=== PATIENT | female | born 1995 | race Hispanic/Latino ===

== ENCOUNTER 2021-09-09 18:36 | Emergency (ER) | payer BC ==
[~2021-09-09] VITALS: Ht 154.9 cm; Wt 86.2 kg
[2021-09-09 19:13] LABS: APPEARANCE,URINE Clear (CLEAR); BILIRUBIN,URINE Negative (NEGATIVE); COLOR,URINE Yellow (YELLOW); GLUCOSE, URINE (UA) Negative (NEGATIVE); KETONES,URINE 15 mg/dL (NEGATIVE); LEUKOCYTE ESTERASE ,URINE Trace (NEGATIVE); NITRATE,URINE Negative (NEGATIVE); OCCULT BLOOD,URINE Trace (NEGATIVE); PH,URINE 6.5 (5.0-8.0); PROTEIN,URINE Negative (NEGATIVE); UROBILINOGEN,URINE 0.2 mg/dL (0.2-1.0)
[2021-09-09 19:14] LABS: HCG,QUAL RESULT POSITIVE (NEGATIVE)
[2021-09-09 19:18] LABS: BASOPHILS % (AUTO) 0.1 % (0.0-5.0); EOSINOPHILS % (AUTO) 0.4 % (0.0-8.0); HEMATOCRIT 45.2 % (36-48); LYMPHOCYTES % (AUTO) 12.9 % (21.0-51.0); MEAN CORPUSCULAR HGB CONC 32.7 g/dL (32.0-36.0); MEAN CORPUSCULAR VOLUME 88.6 fL (79-99); NEUTROPHILS % (AUTO) 80.3 % (40.0-77.0); PLATELET COUNT (AUTO) 397 K/uL (130-400); RED CELL DISTRIBUTION WIDTH 13.1 % (11.0-15.5); WHITE BLOOD COUNT (AUTO) 7.2 K/uL (4.8-10.8)
[2021-09-09 19:21] LABS: CREATININE 0.8 mg/dL (0.5-1.5); POTASSIUM 3.4 mmol/L (3.5-5.1)
[2021-09-09 19:24] LABS: ALBUMIN 3.7 g/dL (3.5-5.0); BILIRUBIN,TOTAL 0.4 mg/dL (0.2-1.0); TOTAL PROTEIN, SERUM 8.2 g/dL (6.0-8.3)
[2021-09-09] MEDS ORDERED: 0.9%NACL 1000ML 1,000 ML IV ONE ×2 (19:30→20:00)
[2021-09-09 19:33] LABS: BACTERIA,URINE Few /HPF (None Seen); MUCUS,URINE Few LPF (None Seen); SQUAMOUS EPITHELIAL CELL,UR Moderate /HPF (0-2)
[2021-09-09] MEDS ORDERED: FAMOTIDINE 20MG VIAL IV ONE ×2 (20:00→21:45)
[2021-09-09] MEDS ORDERED: ACETAMINOPHEN 500 MG TABLET PO ONE (20:00)
[2021-09-09] MEDS ORDERED: ONDANSETRON 4MG INJ IVP ONE (20:00)
[2021-09-09] MEDS ORDERED: ONDANSETRON 4MG INJ ONE (21:44)
[2021-09-09] MEDS ORDERED: ACETAMINOPHEN 500 MG TABLET ONE (21:45)
[2021-09-09] MEDS ORDERED: L.AC1CAP6 PO (22:06)
[2021-09-09] MEDS ORDERED: FAMO-136 PO (22:06)
[2021-09-09] MEDS ORDERED: ONDA4TAB10 PO (22:06)
[2021-09-09] MEDS ORDERED: NITR100C4 PO (22:11)
[2021-09-09 23:11] VITALS: BP 118/56
== END 2021-09-09 23:16 | disposition home or self-care (01) ==
LOC: EDH 18:36
DX: O99.611 Diseases of the digestive system complicating pregnancy, first trimester (principal); K52.9 Noninfective gastroenteritis and colitis, unspecified; R82.71 Bacteriuria; Z3A.01 Less than 8 weeks gestation of pregnancy
CPT/HCPCS: 36415; 76801; 80053; 81001; 81025; 84702; 85025; 87804 ×2; 96361; 96374; 96375; 99284; J2405; J3490; J7030

== ENCOUNTER 2022-09-09 20:08 | Emergency (ER) | payer BC, MEDICAID ==
[~2022-09-09] VITALS: Ht 154.9 cm; Wt 91.2 kg
[~2022-09-09 20:08] MED LIST: PNV1TABL17 PO
[2022-09-09] MEDS ORDERED: ACETAMINOPHEN 500 MG TABLET PO ONE (23:00)
[2022-09-09] MEDS ORDERED: NAPR-1180 PO (23:02)
[2022-09-09 23:19] VITALS: BP 121/78
== END 2022-09-09 23:41 | disposition home or self-care (01) ==
LOC: EDH 20:08
DX: S69.82XA Other specified injuries of left wrist, hand and finger(s), initial encounter (principal); X58.XXXA Exposure to other specified factors, initial encounter; Y93.89 Activity, other specified; Y92.89 Other specified places as the place of occurrence of the external cause; Y99.8 Other external cause status
CPT/HCPCS: 73660